=== PATIENT | female | born 2000 | race Caucasian/White ===

== ENCOUNTER → 2023-09-24 10:06 | Outpatient (BNVA) | payer OTHER, SELFPAY | PROVIDERS: Visit Provider Internal Medicine | DX: F43.0 Acute stress reaction (principal); R06.4 Hyperventilation | CPT/HCPCS: 99203 ==

== ENCOUNTER → 2023-10-04 07:48 | Outpatient (BNVA) | payer OTHER, SELFPAY | PROVIDERS: Visit Provider Internal Medicine | DX: F43.0 Acute stress reaction (principal) | CPT/HCPCS: 99213 ==

== ENCOUNTER → 2023-10-19 07:39 | Outpatient (BNVA) | payer SELFPAY | PROVIDERS: Visit Provider Physician Assistant Medical | DX: F43.0 Acute stress reaction (principal) | CPT/HCPCS: 99213 ==